=== PATIENT | female | born 1955 | race Caucasian/White ===

== ENCOUNTER 2017-11-09 12:36 | Day surgery (SDC) | payer BC ==
[~2017-11-09 12:36] MED LIST: LIDOCAINE 1% PF 2 ML VIAL. ID; MORPHINE SULFATE 4 MG/ML DISP.SYRIN. IV; ONDANSETRON PF 4 MG/2 ML VIAL. IV; PROCHLORPERAZINE 10 MG/2 ML VIAL. IV; ceFAZolin 2GM PREMIX 2 GM/50 ML BAG IV; fentaNYL PF VIAL 100 MCG/2 ML VIAL IV
[2017-11-09] MEDS: IV RINGERS,LACTATED 1000ML 1,000 ML IV (13:24)
[2017-11-09] MEDS ORDERED: INSULIN REGULAR 100 UNIT/ML 10ML VIAL. SQ (13:44)
[2017-11-09] MEDS: INSULIN ASPART 100 UNIT/ML 10ML VIAL. SQ (13:57)
[2017-11-09] MEDS ORDERED: PROPOFOL 20 ML IV (14:29)
[2017-11-09] MEDS ORDERED: fentaNYL PF VIAL 100 MCG/2 ML VIAL ×3 (14:29→18:04)
[2017-11-09] MEDS ORDERED: ONDANSETRON PF 4 MG/2 ML VIAL. (14:29)
[2017-11-09] MEDS ORDERED: DEXAMETHASONE SOD PHOS 20 MG/5 ML VIAL. (14:29)
[2017-11-09] MEDS ORDERED: ROCURONIUM 50 MG/5 ML VIAL. (15:08)
[2017-11-09] MEDS ORDERED: MIDAZOLAM HCL/PF 2 MG/2 ML VIAL. (15:13)
[2017-11-09] MEDS: CHLORHEXIDINE 0.12% 15 ML MOUTHWASH. SWSP (15:36)
[2017-11-09] MEDS: BUPIVACAINE-EPI 0.25%-1:200000 50 ML VIAL. (15:36)
[2017-11-09] MEDS: GELATIN SPONGE SIZE 100. (15:36)
[2017-11-09] MEDS ORDERED: PHENYLEPHRINE in 0.9% NACL PF 1 MG/10 ML SYRINGE. IV ×2 (16:06→17:49)
[2017-11-09] MEDS ORDERED: DESFLURANE > 120 MINUTES IH (16:19)
[2017-11-09] MEDS ORDERED: GLYCOPYRROLATE 1 MG/5 ML VIAL. (16:20)
[2017-11-09] MEDS ORDERED: NEOSTIGMINE METHYLSULFATE 5 MG/5 ML SYRINGE. ×2 (16:20→18:01)
[2017-11-09] MEDS ORDERED: ePHEDrine PF IN SALINE 50 MG/5 ML DISP.SYRIN IV (16:28)
[2017-11-09] MEDS ORDERED: DESFLURANE 61 TO 120 MINUTES IH ×2 (16:31→18:02)
[2017-11-09 17:11] LABS: POC GLUCOSE 202 mg/dL (70-99)
[2017-11-09] MEDS: fentaNYL PF VIAL 100 MCG/2 ML VIAL IV (18:08)
[2017-11-11 08:04] LABS: POC GLUCOSE 282 mg/dL (70-99)
[2017-11-11 08:04] LABS: POC GLUCOSE 234 mg/dL (70-99)
== END 2017-11-09 19:05 | disposition home or self-care (01) ==
LOC: SURG 12:36
DX: K02.9 Dental caries, unspecified (principal); Z86.73 Personal history of transient ischemic attack (TIA), and cerebral infarction without residual deficits; G47.33 Obstructive sleep apnea (adult) (pediatric); I12.9 Hypertensive chronic kidney disease with stage 1 through stage 4 chronic kidney disease, or unspecified chronic kidney disease; E11.22 Type 2 diabetes mellitus with diabetic chronic kidney disease; N18.9 Chronic kidney disease, unspecified; E11.39 Type 2 diabetes mellitus with other diabetic ophthalmic complication; H40.9 Unspecified glaucoma
CPT/HCPCS: 41874; 82962; J0690; J1100; J2250; J2370; J2405; J2704; J2710; J3010; J3490